=== PATIENT | female | born 1990 | race Caucasian/White ===

== ENCOUNTER 2019-09-23 23:04 | Inpatient (IN) | payer OTHER ==
[2019-09-23] MEDS ORDERED: Nalbuphine 10 MG/ML Syringe IVPUSH PRN (23:36)
[2019-09-23] MEDS ORDERED: Sodium Chloride 0.9% 10 ML Syringe FLUSH PRN (23:36)
[2019-09-23] MEDS ORDERED: Ampicillin 2 GM in Sodium Chloride 0.9% 100 ML IV ONE (23:36)
[2019-09-23] MEDS ORDERED: Ampicillin 2 GM AdvVial IV ONE (23:43)
[2019-09-23] MEDS ORDERED: Lactated Ringers 1,000 ML ONE (23:43)
[2019-09-23] MEDS ORDERED: Sodium Chloride 0.9% 100 ML ONE (23:43)
[2019-09-23] MEDS ORDERED: Oxytocin/Lactated Ringers 10 UNIT/1,000 ML BAG IV SCH (23:45)
[2019-09-23] MEDS ORDERED: Lactated Ringers 1,000 ML IV SCH (23:45)
[2019-09-24] MEDS ORDERED: Oxytocin/Lactated Ringers 10 UNIT/1,000 ML BAG IV ONE (00:09)
--- NOTE | 2019-09-24 01:14 | PCM.LDHP ---
L&D History of Present Illness - General Date of Service: 09/24/19 Admit Problem/Dx: Patient Status Order with Admit Dx/Problem 09/23/19 23:36 Patient Status [ADT] Routine Admission Diagnosis/Problem Admission Diagnosis/Problem - History of Present Illness Introduction:: 29 year old female with history of labor in prior presents with SROM at home and painful contractions. Rapid thereafter. GBS positive no antibiotics given. - Related Data Allergies/Adverse Reactions: Allergies Allergy/AdvReac Type Severity Reaction Status Date / Time No Known Allergies Allergy Verified 09/23/19 23:51 Social & Family History - Tobacco Use Smoking Status *Q: Never Smoker H&P Review of Systems - Review of Systems: Review Of Systems: See Below General: Reports: No Symptoms HEENT: Reports: No Symptoms Pulmonary: Reports: No Symptoms Cardiovascular: Reports: No Symptoms Gastrointestinal: Reports: No Symptoms Genitourinary: Reports: No Symptoms Musculoskeletal: Reports: No Symptoms Skin: Reports: No Symptoms Psychiatric: Reports: No Symptoms Neurological: Reports: No Symptoms Hematologic/Lymphatic: Reports: No Symptoms Immunologic: Reports: No Symptoms L&D Exam - Exam Exam: See Below - Vital Signs Weight: 101.605 kg - OB Specific Contraction Intensity: Moderate to Strong Movement: Active Heart Tones: Present Heart Rate (FHR) Variability: Moderate (6-25 bmp) Presentation: Vertex - Gibbs Score Gibbs Score Cervix Position: Midposition Gibbs Score Consistency: Soft Gibbs Score Effacement: 51-70% Gibbs Score Dilation: 3-4 cm Gibbs Score Infant's Station: -2 Gibbs Score Total: 8 - Exam General: Alert, Oriented HEENT: PERRLA, Conjunctiva Clear, EACs Clear, EOMI, Hearing Intact, Mucosa Moist & [place], Nares Patent, Normal Nasal Septum, Posterior Pharynx Clear, TMs Clear Neck: Supple, Trachea Midline Lungs: Clear to Auscultation, Normal Respiratory Effort Cardiovascular: Regular Rate, Regular Rhythm GI/Abdominal Exam: Normal Bowel Sounds, Soft, Non-Tender, No Organomegaly, No Distention, No Abnormal Bruit, No Mass, Pelvis Stable Rectal Exam: Normal Exam, Normal Rectal Tone Genitourinary: Normal external exam, Normal bimanual exam, Normal speculum exam Back Exam: Normal Inspection, Full Range of Motion Extremities: Normal Inspection, Normal Range of Motion, Non-Tender, No Pedal Edema, Normal Capillary Refill Skin: Warm, Dry, Intact Neurological: Cranial Nerves Intact, Reflexes Equal Bilateral Psychiatric: Alert, Normal Affect, Normal Mood - Patient Data Lab Results Last 24 hrs: Laboratory Results - last 24 hr 09/23/19 Range/Units 23:44 WBC 10.31 H (3.98-10.04) K/mm3 RBC 4.26 (3.98-5.22) M/mm3 Hgb 11.2 (11.2-15.7) gm/dl Hct 34.8 (34.1-44.9) % MCV 81.7 (79.4-94.8) fl MCH 26.3 (25.6-32.2) pg MCHC 32.2 (32.2-35.5) g/dl RDW Std Deviation 38.2 (36.4-46.3) fL Plt Count 241 (182-369) K/mm3 MPV 9.9 (9.4-12.3) fl Neut % (Auto) 67.7 (34.0-71.1) % Lymph % (Auto) 15.6 L (19.3-51.7) % [place] % (Auto) 8.7 (4.7-12.5) % Eos % (Auto) 5.4 (0.7-5.8) Baso % (Auto) 0.2 (0.1-1.2) % Neut # (Auto) 6.97 H (1.56-6.13) K/mm3 Lymph # (Auto) 1.61 (1.18-3.74) K/mm3 [place] # (Auto) 0.90 H (0.24-0.36) K/mm3 Eos # (Auto) 0.56 H (0.04-0.36) K/mm3 Baso # (Auto) 0.02 (0.01-0.08) K/mm3 Manual Slide Review Abnormal smear Result Diagrams: 09/23/19 23:44 Problem List Initiated/Reviewed/Updated: Yes Orders Last 24hrs: Active Orders 24 hr Category Date Time Status Patient Status Manage Transfer [TRANSFER] Routine ADT 09/24/19 01:01 Ordered Patient Status [ADT] Routine ADT 09/23/19 23:36 Active Activity as Tolerated [RC] PFP Care 09/23/19 23:36 Active Communication Order [RC] ASDIRECTED Care 09/23/19 23:36 Active Heart Tones [RC] ASDIRECTED Care 09/23/19 23:36 Active Non Stress Test [RC] PER UNIT ROUTINE Care 09/23/19 23:36 Active Notify Provider [RC] PFP Care 09/23/19 23:36 Active Notify Provider [RC] PRN Care 09/23/19 23:36 Active Peripheral IV Care [RC] . DIRECTED Care 09/23/19 23:36 Active Vital Signs [RC] PER UNIT ROUTINE Care 09/23/19 23:36 Active Regular Diet [DIET] Diet 09/24/19 Breakfast Active RAPID PLASMA REAGIN,RPR [CHEM] Routine Lab 09/23/19 23:44 Received Ampicillin 1 gm Med 09/24/19 04:00 Active Sodium Chloride 0.9% [Normal Saline] 100 ml IV Q4H Lactated Ringers [Ringers, Lactated] 1,000 ml Med 09/23/19 23:45 Active IV ASDIRECTED Nalbuphine [Nubain] Med 09/23/19 23:36 Active 10 mg IVPUSH Q2H PRN Oxytocin/Lactated Ringers [Pitocin in LR 10 Units/1,000 Med 09/23/19 23:45 Active ML] 10 unit in 1,000 ml IV .CONTINUOUS Sodium Chloride 0.9% [Saline Flush] Med 09/23/19 23:36 Active 10 ml FLUSH ASDIRECTED PRN Electronic Heart Tones Ext w TOCO [WOMSER] Oth 09/23/19 23:36 Ordered Routine Electronic Heart Tones Internal [WOMSER] Per Unit Oth 09/23/19 23:36 Ordered Routine Peripheral IV Insertion Adult [OM.PC] Routine Oth 09/23/19 23:36 Ordered Resuscitation Status Routine Resus Stat 09/23/19 23:36 Ordered Medication Orders Ampicillin Sodium 1 gm/ Sodium (Chloride) 100 mls @ 200 mls/hr IV Q4H MAKENNA Lactated Ringer's (Ringers, Lactated) 1,000 mls @ 100 mls/hr IV ASDIRECTED MAKENNA Oxytocin/Lactated Ringer's (Pitocin In Lr 10 Units/1,000 Ml) 10 unit in 1,000 mls @ 500 mls/hr IV .CONTINUOUS MAKENNA; Protocol Nalbuphine HCl (Nubain) 10 mg IVPUSH Q2H PRN PRN Reason: Pain Sodium Chloride (Saline Flush) 10 ml FLUSH ASDIRECTED PRN PRN Reason: Keep Vein Open Assessment/Plan Comment:: Term labor. Progressed rapidly to . Plan - support , monitor bleeding, anticipate discharge at 48 hours
--- NOTE | 2019-09-24 01:30 | PCM.SN ---
- Free Text/Narrative Note: Stage I - Patient presented in active labor. Progressed rapidly to complete. Stage II - of viable male. Weight 7#. APGARS 9/9 at 0027. Head delivered in controlled manner over intact perinuem. Body and shoulders without difficulty. Positive cry. To maternal abdomen. Cord clamped and cut by father of baby. Stage III - of intact placenta. 3vc. Small 1st degree laceration repaired with 3-0 vicryl. EBL 100
[2019-09-24] MEDS ORDERED: Hydrocortisone Acetate 25 MG Supp RECTAL PRN (02:14)
[2019-09-24] MEDS ORDERED: Benzocaine/Menthol 20%-0.5% Spray 56 GM Canister TOP PRN (02:14)
[2019-09-24] MEDS ORDERED: Witch Hazel Medicated Pads 40/Jar TOP PRN (02:14)
[2019-09-24] MEDS ORDERED: Acetaminophen 325 MG Tab PO PRN (02:14)
[2019-09-24] MEDS: Ibuprofen 600 MG Tab PO PRN ×2 (02:37→10:51)
[2019-09-24] MEDS ORDERED: Ampicillin 1 GM in Sodium Chloride 0.9% 100 ML IV SCH (04:00)
[2019-09-24] MEDS: Lidocaine 1% 50 ML MDV ONE ×2 (04:02→04:08)
[2019-09-24] MEDS ORDERED: Lidocaine 1% 50 ML MDV INJECT SCH (04:15)
[2019-09-24] MEDS: Docusate Sodium 100 MG Cap PO PRN (10:52)
--- NOTE | 2019-09-25 08:58 | PCM.PNPP ---
- General Info Date of Service: 09/25/19 Functional Status: Reports: Pain Controlled - Review of Systems General: Reports: No Symptoms HEENT: Reports: No Symptoms Pulmonary: Reports: No Symptoms Cardiovascular: Reports: No Symptoms Gastrointestinal: Reports: No Symptoms Genitourinary: Reports: No Symptoms Musculoskeletal: Reports: No Symptoms Skin: Reports: No Symptoms Neurological: Reports: No Symptoms Psychiatric: Reports: No Symptoms - General Info Date of Service: 09/25/19 - Patient Data Vital Signs - Most Recent: Last Vital Signs Temp 36.8 C 09/25/19 03:17 Pulse 65 09/25/19 03:17 Resp 16 09/25/19 03:17 BP 133/84 09/25/19 03:17 Pulse Ox 100 09/25/19 03:17 Weight - Most Recent: 101.605 kg I&O - Last 24 Hours: Intake & Output 09/24/19 09/25/19 09/25/19 22:59 06:59 14:59 Intake Total 540 Balance 540 Lab Results - Last 24 Hours: Laboratory Results - last 24 hr 09/23/19 09/24/19 Range/Units 23:44 11:15 RPR Non-reactive (NONREACTIVE) Blood Type O NEGATIVE Gel Antibody Screen Positive Screen 0 ros/5 flds - neg RhIG Candidate? Yes Rhogam Indicated Yes, baby rh unknown H Med Orders - Current: Current Medications Acetaminophen (Tylenol) 650 mg PO Q4H PRN PRN Reason: mild pain or fever Benzocaine/Menthol (Dermoplast Pain Relief [place]) 0 gm TOP ASDIRECTED PRN PRN Reason: Perineal Comfort Measure Last Admin: 09/24/19 04:08 Dose: 1 canister Docusate Sodium (Colace) 100 mg PO BID PRN PRN Reason: Constipation Last Admin: 09/24/19 10:52 Dose: 100 mg Hydrocortisone Acetate (Anucort-Hc) 25 mg RECTAL BID PRN PRN Reason: Hemorrhoid pain Ibuprofen (Motrin) 600 mg PO Q6H PRN PRN Reason: Mild pain or fever Last Admin: 09/24/19 10:51 Dose: 600 mg Lidocaine HCl (Xylocaine 1%) 50 ml INJECT .ONE MAKENNA Last Admin: 09/24/19 00:35 Dose: 50 ml Witch Chelo (Tucks) 1 pad TOP ASDIRECTED PRN PRN Reason: Pain Last Admin: 09/24/19 04:08 Dose: 1 tub Discontinued Medications Ampicillin Sodium (Ampicillin) Confirm Administered Dose 2 gm IV .STK-MED ONE Stop: 09/23/19 23:44 Last Admin: 09/24/19 04:00 Dose: Not Given Ampicillin Sodium 2 gm/ Sodium (Chloride) 100 mls @ 200 mls/hr IV ONETIME ONE Stop: 09/24/19 00:05 Last Admin: 09/24/19 03:59 Dose: Not Given Ampicillin Sodium 1 gm/ Sodium (Chloride) 100 mls @ 200 mls/hr IV Q4H MAKENNA Lactated Ringer's (Ringers, Lactated) 1,000 mls @ 100 mls/hr IV ASDIRECTED MAKENNA Last Admin: 09/23/19 23:45 Dose: 999 mls/hr Oxytocin/Lactated Ringer's (Pitocin In Lr 10 Units/1,000 Ml) 10 unit in 1,000 mls @ 500 mls/hr IV .CONTINUOUS MAKENNA; Protocol Last Admin: 09/24/19 00:30 Dose: 500 mls/hr Lactated Ringer's (Ringers, Lactated) Confirm Administered Dose 1,000 mls @ as directed .ROUTE .STK-MED ONE Stop: 09/23/19 23:44 Last Admin: 09/24/19 04:00 Dose: Not Given Sodium Chloride (Normal Saline) Confirm Administered Dose 100 mls @ as directed .ROUTE .STK-MED ONE Stop: 09/23/19 23:44 Last Admin: 09/24/19 04:00 Dose: Not Given Oxytocin/Lactated Ringer's (Pitocin In Lr 10 Units/1,000 Ml) Confirm Administered Dose 10 unit in 1,000 mls @ as directed IV .STK-MED ONE Stop: 09/24/19 00:10 Last Admin: 09/24/19 04:00 Dose: Not Given Lidocaine HCl (Xylocaine 1%) Confirm Administered Dose 50 ml .ROUTE .STK-MED ONE Stop: 09/24/19 00:32 Last Admin: 09/24/19 04:08 Dose: Not Given Nalbuphine HCl (Nubain) 10 mg IVPUSH Q2H PRN PRN Reason: Pain Sodium Chloride (Saline Flush) 10 ml FLUSH ASDIRECTED PRN PRN Reason: Keep Vein Open - Interaction Disposition, : in Room with Family Support Person: - Recovery Exam Fundal Tone: Firm Fundal Level: 1 Fingerbreadths Below Umbilicus Fundal Placement: Midline Lochia Amount: Small Lochia Color: Rubra/Red Perineum Description: Other (see below) Other Perinuem Description: 1st degree with repair Episiotomy/Laceration: Approximated Bladder Status: Voiding Urinary Elimination: Voided - Exam General: Alert, Oriented HEENT: Pupils Equal Neck: Supple Lungs: Clear to Auscultation, Normal Respiratory Effort Cardiovascular: Regular Rate, Regular Rhythm GI/Abdominal Exam: Normal Bowel Sounds, Soft, Non-Tender, No Organomegaly, No Distention, No Abnormal Bruit, No Mass, Pelvis Stable Extremities: Normal Inspection, Normal Range of Motion, Non-Tender, No Pedal Edema, Normal Capillary Refill Skin: Warm, Dry, Intact Wound/Incisions: Healing Well Neurological: No New Focal Deficit Psy/Mental Status: Alert, Normal Affect, Normal Mood - Problem List Review Problem List Initiated/Reviewed/Updated: Yes - My Orders Last 24 Hours: My Active Orders 09/24/19 11:15 ANTIBODY IDENTIFICATION [BBK] Routine SCREEN [BBK] Routine RH IMMUNE GLOBULIN [BBK] Routine RHOGAM, [RHIG WORKUP, ] [BBK] Routine 09/25/19 02:14 Heat Therapy [OM.PC] PRN 09/25/19 Breakfast Regular Diet [DIET] - Assessment Assessment:: day 1 Doing well. Will stay today because of GBS. - Plan Plan:: Term labor. Progressed rapidly to . Plan - support , monitor bleeding, anticipate discharge at 48 hours
[2019-09-25] MEDS: Ibuprofen 600 MG Tab PO PRN (10:53)
[2019-09-25] MEDS: Docusate Sodium 100 MG Cap PO PRN (10:53)
--- NOTE | 2019-09-26 07:44 | PCM.DCSUM1 ---
Discharge Summary - Hospital Course Brief History: Admitted, rapid delivery (09.24.2019), uncomplicated course. Diagnosis: Stroke: No - Discharge Data Discharge Date: 09/26/19 Discharge Disposition: Home, Self-Care 01 Condition: Good - Referral to Home Health Primary Care Physician: Rukhsana Arias MD - Patient Instructions Diet: Usual Diet as Tolerated Activity: No Strenuous Activities Activity, Other: pelvic rest, social distancing Driving: May Drive Today Showering/Bathing: May Shower Notify Provider of: Fever, Increased Pain, Swelling and Redness, Drainage, Nausea and/or Vomiting - Discharge Plan *PRESCRIPTION DRUG MONITORING PROGRAM REVIEWED*: No *COPY OF PRESCRIPTION DRUG MONITORING REPORT IN PATIENT WHITNEY: Not Applicable Patient Handouts: Steps to Quit Smoking Referrals: Rukhsana Arias MD [Primary Care Provider] - (2-4 weeks (telemed or in person depending on contraceptive plan)) - Discharge Summary/Plan Comment DC Time >30 min.: No - General Info Date of Service: 09/26/19 Functional Status: Reports: Pain Controlled - Review of Systems General: Reports: No Symptoms HEENT: Reports: No Symptoms Pulmonary: Reports: No Symptoms Cardiovascular: Reports: No Symptoms Gastrointestinal: Reports: No Symptoms Genitourinary: Reports: No Symptoms Musculoskeletal: Reports: No Symptoms Skin: Reports: No Symptoms Neurological: Reports: No Symptoms Psychiatric: Reports: No Symptoms - Patient Data Vitals - Most Recent: Last Vital Signs Temp 36.8 C 09/26/19 02:40 Pulse 67 09/26/19 02:40 Resp 12 09/26/19 02:40 BP 123/76 09/26/19 02:40 Pulse Ox 99 09/26/19 02:40 Weight - Most Recent: 101.605 kg I&O - Last 24 hours: Intake & Output 09/25/19 09/26/19 09/26/19 22:59 06:59 14:59 Intake Total 800 Balance 800 Med Orders - Current: Current Medications Acetaminophen (Tylenol) 650 mg PO Q4H PRN PRN Reason: mild pain or fever Benzocaine/Menthol (Dermoplast Pain Relief [place]) 0 gm TOP ASDIRECTED PRN PRN Reason: Perineal Comfort Measure Last Admin: 09/24/19 04:08 Dose: 1 canister Docusate Sodium (Colace) 100 mg PO BID PRN PRN Reason: Constipation Last Admin: 09/25/19 10:53 Dose: 100 mg Hydrocortisone Acetate (Anucort-Hc) 25 mg RECTAL BID PRN PRN Reason: Hemorrhoid pain Ibuprofen (Motrin) 600 mg PO Q6H PRN PRN Reason: Mild pain or fever Last Admin: 09/25/19 10:53 Dose: 600 mg Lidocaine HCl (Xylocaine 1%) 50 ml INJECT .ONE [facility] Last Admin: 09/24/19 00:35 Dose: 50 ml Witch Chelo (Tucks) 1 pad TOP ASDIRECTED PRN PRN Reason: Pain Last Admin: 09/24/19 04:08 Dose: 1 tub Discontinued Medications Ampicillin Sodium (Ampicillin) Confirm Administered Dose 2 gm IV .STK-MED ONE Stop: 09/23/19 23:44 Last Admin: 09/24/19 04:00 Dose: Not Given Ampicillin Sodium 2 gm/ Sodium (Chloride) 100 mls @ 200 mls/hr IV ONETIME ONE Stop: 09/24/19 00:05 Last Admin: 09/24/19 03:59 Dose: Not Given Ampicillin Sodium 1 gm/ Sodium (Chloride) 100 mls @ 200 mls/hr IV Q4H MAKENNA Lactated Ringer's (Ringers, Lactated) 1,000 mls @ 100 mls/hr IV ASDIRECTED [facility] Last Admin: 09/23/19 23:45 Dose: 999 mls/hr Oxytocin/Lactated Ringer's (Pitocin In Lr 10 Units/1,000 Ml) 10 unit in 1,000 mls @ 500 mls/hr IV .CONTINUOUS MAKENNA; Protocol Last Admin: 09/24/19 00:30 Dose: 500 mls/hr Lactated Ringer's (Ringers, Lactated) Confirm Administered Dose 1,000 mls @ as directed .ROUTE .STK-MED ONE Stop: 09/23/19 23:44 Last Admin: 09/24/19 04:00 Dose: Not Given Sodium Chloride (Normal Saline) Confirm Administered Dose 100 mls @ as directed .ROUTE .STK-MED ONE Stop: 09/23/19 23:44 Last Admin: 09/24/19 04:00 Dose: Not Given Oxytocin/Lactated Ringer's (Pitocin In Lr 10 Units/1,000 Ml) Confirm Administered Dose 10 unit in 1,000 mls @ as directed IV .STK-Whois ONE Stop: 09/24/19 00:10 Last Admin: 09/24/19 04:00 Dose: Not Given Lidocaine HCl (Xylocaine 1%) Confirm Administered Dose 50 ml .ROUTE .STK-MED ONE Stop: 09/24/19 00:32 Last Admin: 09/24/19 04:08 Dose: Not Given Nalbuphine HCl (Nubain) 10 mg IVPUSH Q2H PRN PRN Reason: Pain Sodium Chloride (Saline Flush) 10 ml FLUSH ASDIRECTED PRN PRN Reason: Keep Vein Open - Exam General: Reports: Alert, Oriented HEENT: Reports: Pupils Equal, Pupils Reactive, EOMI, Mucous Membr. Moist/[place] Neck: Reports: Supple Lungs: Reports: Normal Respiratory Effort Cardiovascular: Reports: Regular Rate, Regular Rhythm GI/Abdominal Exam: Normal Bowel Sounds, Soft, Non-Tender, No Organomegaly, No Distention, No Abnormal Bruit, No Mass Rectal (Female) Exam: Normal Exam, Normal Rectal Tone Back Exam: Reports: Normal Inspection, Full Range of Motion Extremities: Normal Inspection, Normal Range of Motion, Non-Tender, No Pedal Edema, Normal Capillary Refill Skin: Reports: Warm, Dry, Intact Wound/Incisions: Reports: Healing Well Neurological: Reports: No New Focal Deficit Psy/Mental Status: Reports: Alert, Normal Affect, Normal Mood
== END 2019-09-26 10:40 | disposition home or self-care (01) | DRG 807 ==
LOC: JD.OBCHECK 23:04 → JD.OB 23:10 → JD.OBCHECK 23:44 → JD.OB 23:47 → OBSVTOIN 09-24 00:27 → JD.OB 09-24 00:28
PROVIDERS: ADMIT Obstetrics & Gynecology; ATTEND Obstetrics & Gynecology
PROC: 10E0XZZ Delivery of Products of Conception, External Approach (ICD-10-PCS; principal; 2019-09-24)
PROC: 3E0234Z Introduction of Serum, Toxoid and Vaccine into Muscle, Percutaneous Approach (ICD-10-PCS; 2019-09-24)
DX: O26.893 Other specified pregnancy related conditions, third trimester (principal); Z37.0 Single live birth; O70.0 First degree perineal laceration during delivery; Z67.41 Type O blood, Rh negative; Z3A.37 37 weeks gestation of pregnancy
CPT/HCPCS: 36415; 59025; 59409; 85025; 86592; A9270-GY; J2001; J2590; J2790; J7120